=== PATIENT | male | born 1990 | race Caucasian/White ===

== ENCOUNTER 2017-03-07 13:31 | Emergency (ER) | payer OTHER ==
[~2017-03-07] VITALS: Ht 190.5 cm; Wt 80.5 kg
[2017-03-07 13:35] VITALS: TEMP 36.6; Ht 190.5 cm; Wt 80.5 kg
[2017-03-07] MEDS ORDERED: DiphenhydrAMINE HCL 50 MG/ML VIAL IV STA (14:03)
[2017-03-07] MEDS ORDERED: FAMOTIDINE IV INJ 20 MG in DEXTROSE 5% 100ML 100 ML IV STA (14:03)
[2017-03-07] MEDS ORDERED: SODIUM CHLORIDE 0.9% 1000ML 1,000 ML IV STA (14:03)
[2017-03-07 14:13] LABS: BASO % 0.1 %; BASO ABS # 0.02 K/uL (0-0.2); COMPLETE YES; EOS % 0.5 %; HEMATOCRIT 50.3 % (42-52); IG% 0.4 %; LYMPH % 11.3 %; LYMPH ABS # 2.74 K/uL (1.2-3.4); MEAN CELL VOLUME 88.7 fL (80-100); MEAN CORPUSCULAR HEMOGLOBIN 30.2 pg (25-34); MONO % 6.7 %; PLATELET COUNT 357 K/uL (130-400); RED BLOOD COUNT 5.67 M/uL (4.7-6.1); WHITE BLOOD COUNT 24.16 K/uL (4.8-10.8)
[2017-03-07] MEDS ORDERED: DEXAMETHASONE SOD INJ 10 MG/ML VIAL IV ONE (14:15)
[2017-03-07 14:20] LABS: BUN/CREATININE RATIO 8.1 (10-20); CALCIUM 8.6 mg/dl (8.5-10.1); CREATININE 1.3 mg/dl (0.60-1.40); POTASSIUM 3.8 mmol/L (3.5-5.1)
[2017-03-07 15:28] LABS: LYME DISEASE AB IGG NEG (NEG); LYME DISEASE AB IGM NEG (NEG)
[2017-03-07] MEDS ORDERED: PRED20TA2 PO (16:02)
[2017-03-07 16:13] VITALS: BP 122/65; PULSE 88; O2SAT 97
--- NOTE | 2017-03-07 18:27 | EMERGENCY ROOM VISIT NOTE ---
History First contact with patient: 13:56 Chief Complaint: ALLERGIC REACTION Stated Complaint: POISON SPREAD ALL OVER BODY- EXTREMELY ITCHY Nursing Triage Summary: Pt feels he was exposed to poison [place], he had this happen before with same response, seen at clinic and placed on benadryl type cream - did not take any benadryl tablets. states started 2 days ago pt c/o rash and pruritis History of Present Illness The patient is a 26 year old male who presents to the Emergency Room with complaints of a possible allergic reaction to poison sumac. The patient reports that he was seen at the [facility] urgent [facility] [place] and referred here for this reaction. The patient reports that he was outdoors over the weekend. The rash initially developed on his legs and around his ankles. He then started to spread across his torso and scalp. The patient now reports some mild shortness of breath that started yesterday. He denies using any new topical products except for Dove body soap. He denies any rash on his face, though washes his face with the body soap. He has had no recent infections, fevers or chills. The patient has had contact dermatitis from poison sumac in the past, and reports that the rash is similar. He denies any lip/tongue/ throat swelling. He denies any chest pain. He reports a moderate itch. Review of Systems 10 system review was performed and was negative except for pertinent positives and negatives as indicated in history of present illness Past Medical/Surgical History Medical Problems: (1) No significant past medical history Surgical Problems: (1) No history of previous surgery Family History Unremarkable Social History Smoking Status: Current Every Day Smoker Alcohol Use: occasionally Marital Status: single Housing Status: lives with family Occupation Status: employed Current/Historical Medications Scheduled Prednisone (Prednisone Tab), 0 PO DAILY Allergies Uncoded Allergies: POISON [place] (Allergy, Severe, HIVES, SOB, 03/07/17) Physical Exam Vital Signs Date Time Temp Pulse Resp B/P Pulse Ox O2 Delivery O2 Flow Rate FiO2 03/07/17 16:13 88 18 122/65 97 Room Air 03/07/17 15:31 84 18 123/61 97 Room Air 03/07/17 13:59 96 03/07/17 13:35 36.6 142 20 97/63 99 Room Air Physical Exam CONSTITUTIONAL: Healthy and well nourished. Alert and oriented X 3 with positive affect. Patient appears in mild discomfort, and is scratching his skin. HEENT: Normocephalic, atraumatic. Pupils equal, round and reactive. No facial edema noted. Ears and nares are clear. OROPHARYNX: No angioedema, posterior frontal erythema or tonsillar hypertrophy. NECK: Full active range of motion without discomfort. RESPIRATORY: Clear to auscultation bilaterally with no wheezing, crackles, rhonchi or stridor. CARDIOVASCULAR: Patient is mild tachycardic at 103 bpm on my exam. No murmurs, rubs or gallops. GASTROINTESTINAL: Bowel sounds present in all quadrants. Soft and nontender to palpation. MUSCULOSKELETAL: Full range of motion of all joints without discomfort. INTEGUMENTARY: Examination shows a raised erythematous rash across the entire body, sparing the face, palms and feet/soles. Patient has a few linear erythematous holliday on the lower extremities that do not jose guadalupe with pressure. Otherwise, remaining rash on the body does jose guadalupe with pressure, concerning for hives. No vesicles, pustules, desquamation or drainage. HEMATOLOGIC: No ecchymosis or petechiae noted. NEUROLOGIC: No focal neurologic deficits noted. Medical Decision & Procedures Laboratory Results 03/07/17 13:50 Red Blood Count 5.67, Mean Corpuscular Volume 88.7, Mean Corpuscular Hemoglobin 30.2, Mean Corpuscular Hemoglobin Concent 34.0, Mean Platelet Volume 10.0, Neutrophils (%) (Auto) 81.0, Lymphocytes (%) (Auto) 11.3, Monocytes (%) (Auto) 6.7, Eosinophils (%) (Auto) 0.5, Basophils (%) (Auto) 0.1, Neutrophils # (Auto) 19.56, Lymphocytes # (Auto) 2.74, Monocytes # (Auto) 1.62, Eosinophils # (Auto) 0.13, Basophils # (Auto) 0.02 03/07/17 13:50 Test 03/07/17 13:50 White Blood Count 24.16 K/uL (4.8-10.8) Red Blood Count 5.67 M/uL (4.7-6.1) Hemoglobin 17.1 g/dL (14.0-18.0) Hematocrit 50.3 % (42-52) Mean Corpuscular Volume 88.7 fL (80-100) Mean Corpuscular Hemoglobin 30.2 pg (25-34) Mean Corpuscular Hemoglobin Concent 34.0 g/dl (32-36) Platelet Count 357 K/uL (130-400) Mean Platelet Volume 10.0 fL (7.4-10.4) Neutrophils (%) (Auto) 81.0 % Lymphocytes (%) (Auto) 11.3 % Monocytes (%) (Auto) 6.7 % Eosinophils (%) (Auto) 0.5 % Basophils (%) (Auto) 0.1 % Neutrophils # (Auto) 19.56 K/uL (1.4-6.5) Lymphocytes # (Auto) 2.74 K/uL (1.2-3.4) Monocytes # (Auto) 1.62 K/uL (0.11-0.59) Eosinophils # (Auto) 0.13 K/uL (0-0.5) Basophils # (Auto) 0.02 K/uL (0-0.2) RDW Standard Deviation 38.9 fL (36.4-46.3) RDW Coefficient of Variation 12.1 % (11.5-14.5) Immature Granulocyte % (Auto) 0.4 % Immature Granulocyte # (Auto) 0.09 K/uL (0.00-0.02) Erythrocyte Sedimentation Rate 10 mm/hr (0-14) Anion Gap 9.0 mmol/L (3-11) Est Creatinine Clear Calc Drug Dose 98.9 ml/min Estimated GFR () 87.9 Estimated GFR (Non- 75.8 BUN/Creatinine Ratio 8.1 (10-20) Calcium Level 8.6 mg/dl (8.5-10.1) Lyme Disease IgG Antibody NEG (NEG) Lyme Disease IgM Antibody NEG (NEG) The above labs were reviewed. Lyme screen is negative. White count is significantly elevated with left shift and bandemia. Sedimentation rate is normal. Medications Administered Medications (Trade) Dose Ordered Sig/Lenora Route Start Time Stop Time Status Last Admin Dose Admin Sodium Chloride (Nss 1000ml) 1,000 ml @ 999 mls/hr Q1H1M STAT IV 03/07/17 14:03 03/07/17 15:03 DC 03/07/17 14:11 999 MLS/HR Diphenhydramine HCl (Benadryl Inj) 50 mg NOW STAT IV 03/07/17 14:03 03/07/17 14:06 DC 03/07/17 14:10 50 MG Dexamethasone Sodium Phosphate 10 mg 10 mg NOW ONCE IV 03/07/17 14:15 03/07/17 14:16 DC 03/07/17 14:10 10 MG Famotidine/ Dextrose (Pepcid IV Inj/ D5 100ml) 102 ml @ 200 mls/hr ONE STAT IV 03/07/17 14:03 03/07/17 14:33 DC 03/07/17 14:21 200 MLS/HR Procedure 1. IV hydration: The patient received a liter normal saline bolus 2. IV medications: Decadron 10 mg, Benadryl 50 mg and Pepcid 20 mg IVP ED Course Patient history and physical exam were performed. Nurse's notes were reviewed. Triage vital signs were reviewed, showing mild hypertension and tachycardia. However his blood pressure was normal with a heart rate of 102 bpm on my presentation to the exam room. IV access was established, and labs were drawn. The patient was hydrated with normal saline, and received IV medications as discussed in the previous Procedure section. Review of labs shows a markedly elevated white count. Sedimentation rate is otherwise normal. Whenever back to evaluate the patient after one hour, he was very irritated and stated that he wanted to leave. He was also being belligerent to the nurse, stating that he has been here forever. The patient was provided a prescription for prednisone taper. He was encouraged to follow-up with his PCP for further management and to review of labs. He was instructed to return for any developing fever, angioedema, chest pain, shortness of breath or other concerning symptoms. Medical Decision Patient presents with complaint of a rash that he attributes to coming into contact with poison [place]ac. However, he also has an urticarial type of rash on exam today. Laboratory studies shows a markedly leukocytosis, however the patient refused to stay in the emergency department for further workup. The patient will need close follow-up with his PCP. Impression Primary Impression: Urticaria Additional Impression: Allergic reaction Departure Information Prescriptions Prednisone (Prednisone Tab) 20 Mg Tab 0 PO DAILY, #30 TAB 4 DAILY FOR 3 DAYS, THEN 3 DAILY FOR 3 DAYS, THEN 2 DAILY FOR 3 DAYS, THEN 1 DAILY FOR 3 DAYS. Prov: Kavin Lazaro PA 03/07/17 Referrals No Doctor, Assigned (PCP) Patient Instructions Community Health Problem Qualifiers Additional Impression: Allergic reaction Encounter type: initial encounter Qualified Codes: T78.40XA - Allergy, unspecified, initial encounter
== END 2017-03-07 16:15 | disposition home or self-care (01) ==
LOC: C.EDB 14:58
DX: L50.0 Allergic urticaria (principal); F17.210 Nicotine dependence, cigarettes, uncomplicated